=== PATIENT | male | born 1960 | race Caucasian/White ===

== ENCOUNTER → 2016-11-01 | Outpatient (CLI) | payer BC ==
--- NOTE | 2016-11-01 17:50 | RADIOLOGY REPORT PS360 ---
FOOT-RT-3 VIEWS HISTORY: CELLULITIS cellulitis. Swelling at the foot Patient Age: 56 years: Male Ordering Physician: SUE JAVIER APRN TECHNIQUE: 3 views right foot COMPARISON :None FINDINGS There is mild soft tissue swelling at the forefoot which I radiographically appears evident about the first MTP joint. as well as dorsum and plantar aspect of the forefoot. Borderline hallux valgus No fracture or acute findings at the right foot. Accessory ossification medial navicular as well as the lateral margin of cuboid. Minimal spurring at insertion of Achilles tendon. IMPRESSION: No fracture or acute osseous abnormalities Soft tissue swelling at the forefoot noted
== END ==
LOC: RAD 16:47
DX: L03.115 Cellulitis of right lower limb (principal)